=== PATIENT | female | born 1945 | race Caucasian/White ===

== ENCOUNTER 2021-05-29 10:49 | Emergency (ER) | payer OTHER ==
[~2021-05-29] VITALS: Ht 157.5 cm; Wt 54.4 kg
[~2021-05-29 10:49] MED LIST: DOCU-299 PO; METF500T2 PO
[2021-05-29 10:51] VITALS: BP 134/79
--- NOTE | 2021-05-29 11:08 | NUR ---
PATIENT PRESENTS TO ED WITH RIGHT RIB PAIN S/P FALL LAST NIGHT . PT DENIES ANY HEAD TRAUMA OR LOC . DENIES N/V/D; SKIN IS PINK/WARM/DRY; AAOX4 WITH EVEN AND STEADY GAIT; LUNGS CLEAR BL; HR EVEN AND REGULAR; PT DENIES ANY FEVER, CP, SOB, OR COUGH AT THIS TIME; PATIENT STATES PAIN OF 6/10 AT THIS TIME; VSS; PATIENT POSITIONED FOR COMFORT; HOB ELEVATED; BEDRAILS UP X2; BED DOWN. ER MD MADE AWARE OF PT STATUS.
[2021-05-29] MEDS ORDERED: LIDOCAINE 5% 1 EA PATCH TP STA (11:58)
[2021-05-29] MEDS ORDERED: NACL 0.9% 1,000 ML IV ONE (12:00)
--- NOTE | 2021-05-29 12:07 | NUR ---
RAD AT BEDSIDE
[2021-05-29 12:53] LABS: BASOPHILS # (AUTO) 0.1 K/uL (0.00-0.22); BASOPHILS % (AUTO) 0.9 % (0.0-2.0); EOSINOPHILS # (AUTO) 0.1 K/uL (0-0.4); HEMATOCRIT 47.2 % (36-48); HEMOGLOBIN 16.4 g/dL (12.0-16.0); LYMPHOCYTES % (AUTO) 15.9 % (20.5-51.1); MEAN CORPUSCULAR HEMOGLOBIN 31 pg (27-31); MEAN CORPUSCULAR HGB CONC 35 g/dL (33-37); MEAN CORPUSCULAR VOLUME 89.6 fL (80-94); MONOCYTES # (AUTO) 0.4 K/uL (0.8-1.0); MONOCYTES % (AUTO) 6.9 % (1.7-9.3); NEUTROPHILS # (AUTO) 4.5 K/uL (1.8-7.7); NEUTROPHILS % (AUTO) 74.3 % (42.2-75.2); PLATELET COUNT (AUTO) 122 K/uL (140-450); RED BLOOD CELL COUNT(AUTO) 5.26 MIL/uL (4.20-5.40); RED CELL DISTRIBUTION WIDTH 13.8 % (11.6-13.7)
[2021-05-29 13:11] LABS: ANION GAP 13.2 (8-16); ASPARTATE AMINOTRANSFERASE 18 U/L (15-37); CARBON DIOXIDE 27.7 mmol/L (21-32); CHLORIDE 100 mmol/L (98-107); CREATININE 0.9 mg/dL (0.6-1.3); GLUCOSE 339 mg/dL (74-106); POTASSIUM 4.9 mmol/L (3.5-5.1); PROTHROMBIN TIME 9.2 secs (10.8-13.4); SODIUM SERUM 136 mmol/L (136-145); TOTAL BILIRUBIN 0.5 mg/dL (0.0-1.0); UREA NITROGEN, BLOOD 20 mg/dL (7-18)
--- NOTE | 2021-05-29 14:12 | NUR ---
PT RESTING IN BED WITH EVEN AND UNLABORED RESPIRATIONS, NO SIGNS OF DISTRESS. WILL CONTINUE TO MONITOR
[2021-05-29] MEDS ORDERED: LID5T TP (15:02)
[2021-05-29] MEDS ORDERED: ACET-2619 PO (15:02)
--- NOTE | 2021-05-29 16:01 | NUR ---
PT AMBULATED TO RESTROOM WITH STEADY GAIT
[2021-05-29 16:03] VITALS: BP 136/79
[2021-05-29] MEDS ORDERED: NICO1PAT16 TP (16:59)
--- NOTE | 2021-05-29 17:00 | NUR ---
Patient discharged with v/s stable. Written and verbal after care instructions ABOUT CONTUSION given and explained. Patient alert, oriented and verbalized understanding of instructions. Ambulatory with steady gait. All questions addressed prior to discharge. ID band removed. Patient advised to follow up with PMD. Rx of ACETAMINOPHEN AND LIDOCAINE PATCH given. Patient educated on indication of medication including possible reaction and side effects. Opportunity to ask questions provided and answered.
--- NOTE | 2021-06-02 05:26 | NUR ---
LATE ENTRY- NORMAL SALINE 0.9% DISCONTINUED AT 1345
== END 2021-05-29 17:00 | disposition home or self-care (01) ==
LOC: MED 10:49
DX: S20.211A Contusion of right front wall of thorax, initial encounter (principal); E11.9 Type 2 diabetes mellitus without complications; Z90.49 Acquired absence of other specified parts of digestive tract; Z98.890 Other specified postprocedural states; Z90.710 Acquired absence of both cervix and uterus; W06.XXXA Fall from bed, initial encounter; Y93.89 Activity, other specified; Y92.89 Other specified places as the place of occurrence of the external cause; Y99.8 Other external cause status
CPT/HCPCS: 36415; 70450; 71045; 71260; 72125; 72128; 72131; 74177; 80053; 85025; 85610; 85730; 96360; 99285; J7030; Q0092; Q9967